=== PATIENT | female | born 1960 | race Caucasian/White ===

== ENCOUNTER → 2018-05-14 | Day surgery (SDC) | payer BC ==
[~2018-05-14] MED LIST: Lactated Ringers 1,000 ML IV SCH; Meperidine PF 25 MG/ML Syringe ONE; Meperidine PF 50 MG/ML Syringe IV ONE; Meperidine PF 50 MG/ML Syringe ONE; Midazolam 1 MG/ML 2 ML SDV IV ONE; Midazolam 1 MG/ML 2 ML SDV ONE
[2018-05-14 07:59] VITALS: BP 100/54
--- NOTE | 2018-05-14 12:14 | OR ---
DATE OF OPERATION: 05/14/2018 PREOPERATIVE DIAGNOSIS: FOLLOW UP POLYPS. POSTOPERATIVE DIAGNOSIS: FOLLOW UP POLYPS. SURGEON: Liu Valencia MD PROCEDURE: FULL-LENGTH COLONOSCOPY. ANESTHESIA: Conscious sedation. COMPLICATIONS: None. SPECIMEN: None. FINDINGS: 1. Full-length colonoscopy. 2. Minimal sigmoid diverticulosis. RECOMMENDATIONS: Followup colonoscopy, 10 years. INDICATIONS: The patient was seen by her regular provider, Dr. Fidel Griggs. She was sent for a colonoscopy for a history of polyps. DESCRIPTION OF PROCEDURE: The patient was prepped and draped, placed in the left lateral decubitus position. A lubricated Olympus colonoscope was inserted and advanced to the cecum. Direct visualization of the ileocecal valve and appendiceal orifice was accomplished. Bowel prep was adequate. Upon withdrawal of the scope throughout the entire length of the colon, I could find no signs of any polyps, mass, ulceration, or bleeding sites. No vascular abnormalities or signs of colitis. There were a few scattered diverticula in the sigmoid area, but minimal. No inflammatory changes. The rectal vault was benign. Retroflexion of the scope in the rectum showed no anal lesions. Air was suctioned and scope removed without complication. NOE/HAI /[id number]
== END ==
LOC: CC.SDS 06:04
PROVIDERS: ATTEND Family Medicine
DX: Z12.11 Encounter for screening for malignant neoplasm of colon (principal); K57.30 Diverticulosis of large intestine without perforation or abscess without bleeding; I10 Essential (primary) hypertension; E55.9 Vitamin D deficiency, unspecified; E78.5 Hyperlipidemia, unspecified; E04.1 Nontoxic single thyroid nodule; F17.200 Nicotine dependence, unspecified, uncomplicated; M19.90 Unspecified osteoarthritis, unspecified site; Z86.010 Personal history of colon polyps; Z79.1 Long term (current) use of non-steroidal anti-inflammatories (NSAID); Z79.82 Long term (current) use of aspirin; Z79.899 Other long term (current) drug therapy
CPT/HCPCS: 45378; J2175; J2250; J7120

== ENCOUNTER 2018-08-29 16:58 | Emergency (ER) | payer BC ==
[2018-08-29] MEDS ORDERED: Albuterol/Ipratropium 3.0-0.5 MG/3 ML Neb Soln INH ONE (16:59)
[2018-08-29] MEDS ORDERED: Albuterol/Ipratropium 3.0-0.5 MG/3 ML Neb Soln ONE (17:12)
[2018-08-29] MEDS ORDERED: Albuterol/Ipratropium 3.0-0.5 MG/3 ML Neb Soln NEB ONE (17:21)
[2018-08-29 17:24] LABS: CHLORIDE,CL 101 mEq/L (98-106); SODIUM,NA 140 mEq/L (136-145)
--- NOTE | 2018-08-29 17:37 | EDM.PDOC ---
ED HPI GENERAL MEDICAL PROBLEM - General Chief Complaint: Respiratory Problem Stated Complaint: I think I have pneumonia Time Seen by Provider: 08/29/18 17:17 Source of Information: Reports: Patient History Limitations: Reports: No Limitations - History of Present Illness INITIAL COMMENTS - FREE TEXT/NARRATIVE: Patient presents to ER with complaints of cough and shortness of breath. States hasn't felt well since Thursday. Has had sinus congestion and headaches. Denies fever but has low grade while here. Cough persistent, has been wheezing. Productive of yellowish phlegm. Has felt nauseated, hasn't been able to eat much over the weekend but has been trying to push fluids. States had this about a month ago, had 2 shots and an antibiotics but this bout is much more intense. Does admit to being a pack a day smoker for years. No history of COPD/asthma that she is aware of. Not routinely on any medications for her lungs. PMH for osteoarthritis, osteoporosis and hypertension. Onset: Gradual Duration: Day(s): Location: Reports: Chest Quality: Reports: Ache Associated Symptoms: Reports: Cough, cough w sputum, Fever/Chills, Headaches, Loss of Appetite, Nausea/Vomiting, Shortness of Breath, Weakness. 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 - Related Data Allergies Allergy/AdvReac Type Severity Reaction Status Date / Time No Known Allergies Allergy Verified 05/14/18 06:18 Home Meds: Home Meds Aspirin [Halfprin] 81 mg PO DAILY 05/09/14 [History] Atenolol/Chlorthalidone [Atenolol-Chlorthalidone 50-25] 0.5 tab PO DAILY [History] Cholecalciferol (Vitamin D3) [Vitamin D] 5,000 unit PO DAILY 05/09/14 [History] Lisinopril [Prinivil] 10 mg PO DAILY 05/09/14 [History] Naproxen Sodium [Aleve] 2 tab PO BID 05/09/14 [History] Alendronate Sodium 70 mg PO WEEKLY 05/13/18 [History] Ascorbate Calcium [Vitamin C] 500 mg PO DAILY 05/13/18 [History] Calcium Citrate/Vitamin D3 [Citracal + D Maximum Caplet] 1 tab PO DAILY [History] Magnesium Oxide 500 mg PO DAILY 05/13/18 [History] Vitamin B Complex 1 tab PO DAILY 05/13/18 [History] Past Medical History Cardiovascular History: Reports: Hypertension Musculoskeletal History: Reports: Osteoarthritis Endocrine/Metabolic History: Reports: Osteoporosis - Past Surgical History Musculoskeletal Surgical History: Reports: Hip Replacement Other Musculoskeletal Surgeries/Procedures:: 2010 BLOSSOM Social & Family History - Family History Family Medical History: Noncontributory - Tobacco Use Smoking Status *Q: Current Every Day Smoker Years of Tobacco use: 38 Packs/Tins Daily: 1 - Recreational Drug Use Recreational Drug Use: No ED ROS GENERAL - Review of Systems Review Of Systems: See Below Constitutional: Reports: Fever, Chills, Malaise, Weakness, Fatigue, Decreased Appetite HEENT: Reports: Rhinitis, Sinus Problem, Throat Pain. Denies: Ear Pain Respiratory: Reports: Shortness of Breath, Wheezing, Cough, Sputum Cardiovascular: Denies: Chest Pain, Edema, Lightheadedness Endocrine: Reports: Fatigue GI/Abdominal: Reports: Nausea. Denies: Abdominal Pain, Diarrhea, Vomiting : Reports: No Symptoms Musculoskeletal: Reports: Joint Pain Skin: Reports: No Symptoms Neurological: Reports: No Symptoms Psychiatric: Reports: No Symptoms ED EXAM, GENERAL - Physical Exam Exam: See Below Exam Limited By: No Limitations General Appearance: Alert, WD/WN, Mild Distress Ears: Normal External Exam, Normal TMs Nose: Normal Inspection, Nasal Swelling, Nasal Drainage Throat/Mouth: Normal Inspection, Normal Oropharynx Head: Normocephalic Neck: Normal Inspection, Supple, Non-Tender Respiratory/Chest: Decreased Breath Sounds Cardiovascular: Regular Rate, Rhythm GI/Abdominal: Normal Bowel Sounds, Soft, Non-Tender Extremities: Normal Inspection, Normal Capillary Refill Neurological: Alert, Oriented Skin Exam: Warm, Dry Course - Vital Signs Last Recorded V/S: Last Vital Signs Temp 99.8 F 08/29/18 16:59 Pulse 79 08/29/18 17:55 Resp 23 H 08/29/18 16:59 BP 146/88 H 08/29/18 17:55 Pulse Ox 93 L 08/29/18 17:55 - Orders/Labs/Meds Orders: Active Orders 24 hr Category Date Time Status RT Aerosol Therapy [RC] ASDIRECTED Care 08/29/18 17:21 Active Ang Chest [CT] Stat Exams 08/29/18 17:34 Taken Chest 2V [CR] Stat Exams 03/24/19 17:01 Taken Labs: Laboratory Tests 08/29/18 08/29/18 08/29/18 Range/Units 17:01 17:01 17:01 WBC 10.8 H (5.0-10.0) 10^3/uL RBC 5.06 (4.00-5.50) 10^6/uL Hgb 15.6 (12.0-16.0) g/dL Hct 45.9 (37.0-47.0) % MCV 90.7 (82.0-94.0) fL MCH 30.8 (27.0-32.0) pg MCHC 34.0 (33.0-38.0) g/dL RDW Coeff of Aida 13.5 (11.0-15.0) % Plt Count 164 (150-400) 10^3/uL Neut % (Auto) 81.5 (35-85) % Lymph % (Auto) 9.3 L (10-55) % [place] % (Auto) 8.4 (0-16) % Eos % (Auto) 0.6 (0-5) % Baso % (Auto) 0.2 (0-3) % Neut # (Auto) 8.80 H (1.80-7.00) 10^3/uL Lymph # (Auto) 1.01 (1.00-4.80) 10^3/uL [place] # (Auto) 0.91 H (0.00-0.80) 10^3/uL Eos # (Auto) 0.07 (0.00-0.45) 10^3/uL Baso # (Auto) 0.02 10^3/uL D-Dimer, Quantitative 0.87 H (0.00-0.50) Sodium 140 (136-145) mEq/L Potassium 3.6 (3.5-5.0) mEq/L Chloride 101 (98-106) mEq/L Carbon Dioxide 27 (21-32) mmol/L BUN 12 (7-18) mg/dL Creatinine 0.6 (0.6-1.0) mg/dL Est Cr Clr Drug Dosing 95.68 mL/min Estimated GFR (MDRD) > 60 (>=60) mL/min Glucose 110 H (75-99) mg/dL Calcium 9.2 (8.4-10.1) mg/dL C-Reactive Protein 5.3 H (0.2-0.8) mg/dL Meds: Medications Discontinued Medications Generic Name Dose Route Start Last Admin Trade Name Vicky PRN Reason Stop Dose Admin Albuterol/Ipratropium 3 ml 08/29/18 17:21 08/29/18 17:24 Duoneb 3.0-0.5 Mg/3 Ml NEB 08/29/18 17:22 3 ml ONETIME ONE Administration Albuterol/Ipratropium Confirm 08/29/18 17:12 08/29/18 17:43 Duoneb 3.0-0.5 Mg/3 Ml Administered 08/29/18 17:13 Not Given Dose 3 ml .ROUTE .STK-MED ONE Iopamidol 100 ml 08/29/18 17:38 08/29/18 17:51 Isovue-370 (76%) IVPUSH 08/29/18 17:39 100 ml ONETIME ONE Administration - Re-Assessments/Exams Free Text/Narrative Re-Assessment/Exam: 08/29/18 17:39 DuoNeb given. Did feel some relief after. Sats 92-93% on room air. Labs noted. D-dimer mildly elevated. CTA ordered. 08/29/18 18:20 PE scan study negative. Kulkarni Departure - Departure Time of Disposition: 18:22 Disposition: Home, Self-Care 01 Condition: Good Clinical Impression: Bronchiolitis - Discharge Information *PRESCRIPTION DRUG MONITORING PROGRAM REVIEWED*: No *COPY OF PRESCRIPTION DRUG MONITORING REPORT IN PATIENT JUANJOSE: No Forms: ED Department Discharge Additional Instructions: 1. Push fluids 2. Ceftin 250 mg twice a day for 10 days 3. DuoNebs four times a day as needed. 4. Follow up if persisting concerns. - My Orders Last 24 Hours: My Active Orders 08/29/18 17:01 Chest 2V [CR] Stat 08/29/18 17:21 RT Aerosol Therapy [RC] ASDIRECTED 08/29/18 17:34 Ang Chest [CT] Stat - Assessment/Plan Last 24 Hours: My Active Orders 08/29/18 17:01 Chest 2V [CR] Stat 08/29/18 17:21 RT Aerosol Therapy [RC] ASDIRECTED 08/29/18 17:34 Ang Chest [CT] Stat
[2018-08-29] MEDS ORDERED: Iopamidol 755 Mg/ML 100 ML Bottle IVPUSH ONE (17:38)
[2018-08-29 17:56] VITALS: BP 146/88
[2018-08-29] MEDS ORDERED: cefTRIAXone 1 GM Vial IM ONE (18:21)
[2018-08-29] MEDS ORDERED: methylPREDNISolone Acetate 80 MG/ML SDV IM ONE (18:21)
[2018-08-29] MEDS ORDERED: Take Home: Albuterol/Ipratropium 3.0-0.5 MG/3 ML Neb Soln, 4 Neb Pack NEB ONE (18:21)
== END 2018-08-29 18:54 | disposition home or self-care (01) ==
LOC: CC.ED 16:58
DX: J21.9 Acute bronchiolitis, unspecified (principal); I10 Essential (primary) hypertension; Z79.82 Long term (current) use of aspirin; Z79.899 Other long term (current) drug therapy
CPT/HCPCS: 36415; 71046; 71275; 80048; 85025; 85379; 86140; 87804; 94640; 96372; 96374; 99285; A9270; J0696; J1040; Q9967; J7620-GY